=== PATIENT | male | born 1985 | race Hispanic/Latino ===

== ENCOUNTER 2017-06-21 02:06 | Emergency (ER) | payer MEDICARE ==
[2017-06-21 02:06] VITALS: BMI 28.5
[2017-06-21] MEDS ORDERED: Sodium Chloride 0.9% 1,000 ML IV STA (02:18)
--- NOTE | 2017-06-21 02:26 | ED PDOC ---
Arrival/HPI - General Chief Complaint: GI Problem Time Seen by Provider: 06/21/17 02:18 - History of Present Illness Narrative History of Present Illness (Text): 31 y/o M c PMHx ADHD, anxiety, Depression, appendectomy p/w vomiting x 6 today, NBNB after eating salad from [employer] at noon. Patient denies fever, chills, chest pain, dyspnea, diarrhea, dysuria. Patient does note some RUQ pressure but no pain per se. Past Medical History - Past History Past History: No Previous - Infectious Disease Hx of Infectious Diseases: None - Tetanus Immunization Tetanus Immunization: Unknown - Cardiac Hx Cardiac Disorders: Yes Hx Hypertension: Yes (not taking meds) Hx Pacemaker: No - Pulmonary Hx Respiratory Disorders: No - Neurological Hx Neurological Disorder: Yes Hx Paralysis: No Hx Seizures: Yes - HEENT Hx HEENT Disorder: No - Renal Hx Renal Disorder: No - Endocrine/Metabolic Hx Endocrine Disorders: No - Hematological/Oncological Hx Blood Disorders: No Hx Blood Transfusions: No Hx Blood Transfusion Reaction: No - Integumentary Hx Dermatological Disorder: No - Musculoskeletal/Rheumatological Hx Musculoskeletal Disorders: No - Gastrointestinal Hx Gastrointestinal Disorders: No - Genitourinary/Gynecological Hx Genitourinary Disorders: No - Psychiatric Hx Psychophysiologic Disorder: Yes Hx Anxiety: Yes Hx Depression: Yes Hx Emotional Abuse: No Hx Physical Abuse: No Hx Substance Use: No Other/Comment: ADD - Past Surgical History Past Surgical History: Non-Contributing - Surgical History Hx Appendectomy: Yes - Anesthesia Hx Anesthesia: No Hx Anesthesia Reactions: No Hx Malignant Hyperthermia: No - Suicidal Assessment Feels Threatened In Home Enviroment: No Family/Social History Family/Social History: No Known Family HX Smoking Status: Never Smoked Hx Alcohol Use: No Hx Substance Use: No Hx Substance Use Treatment: No Allergies/Home Meds Allergies/Adverse Reactions: Allergies lamotrigine [From Lamictal] Allergy (Intermediate, Verified 06/21/17 02:49) RASH aspirin Allergy (Verified 06/21/17 02:49) RASH Penicillins Allergy (Verified 06/21/17 02:49) RASH Home Medications: Home Meds Medication Instructions Recorded Confirmed Amphetamine Salt Combination 60 mg PO DAILY 06/21/17 06/21/17 [Adderall] LORazepam [Ativan] 2 mg PO HS 06/21/17 06/21/17 OXcarbazepine [Trileptal] 600 mg PO BID 06/21/17 06/21/17 Zolpidem [Ambien] 10 mg PO HS 06/21/17 06/21/17 clonazePAM [Klonopin] 1 mg PO PRN PRN 06/21/17 06/21/17 Review of Systems - Physician Review All systems were reviewed & negative as marked: Yes - Review of Systems Constitutional: absent: Fevers Respiratory: absent: SOB Physical Exam - Physical Exam Narrative Physical Exam (Text): Gen: NAD Head: NC Eyes: No scleral icterus ENT: MMM Neck:Supple Chest: No tenderness CV: Regular rate Lungs: CTA b/l Abd: RUQ tenderness, no guarding Back: No CVA tenderness Extremities: No swelling or tenderness Skin: no rash Neuro: Alert, no focal deficit Vital Signs Temp Pulse Resp BP Pulse Ox 06/21/17 02:06 98.6 F 114 H 20 150/96 H 99 Medical Decision Making ED Course and Treatment: IVF, Zofran, check labs, urine, US. EXAM: US Abdomen Complete Dictated and Authenticated by: Malachi Jose MD 06/21/2017 4:20 AM MPRESSION: 1. No acute findings. 2. Non-acute findings are described above 06/21/17 04:25 On re-evaluation, patient feels better, PO challenged and is in no acute distress. I have discussed the results and plan with the patient, who expresses understanding. Patient in agreement with plan to be discharged home. Patient is stable for discharge. Patient was instructed to follow up with Dr. Robledo or return if symptoms worsen or new concerning symptoms arise. - Lab Interpretations Lab Results: 06/21/17 02:35 06/21/17 02:35 Lab Results 06/21/17 02:55: Urine Color Light yellow, Urine Appearance Clear, Urine pH 6.0, Ur Specific [place] 1.020, Urine Protein Negative, Urine Glucose (UA) Negative, Urine Ketones Negative, Urine Blood Small H, Urine Nitrate Negative, Urine Bilirubin Negative, Urine Urobilinogen 0.2, Ur Leukocyte Esterase Negative, Urine RBC 2 - 5, Urine WBC 0 - 2, Ur Epithelial Cells 0 - 2, Urine Bacteria Many 06/21/17 02:35: Sodium 141, Potassium 3.7, Chloride 97 L, Carbon Dioxide 29, Anion Gap 18, BUN 7, Creatinine 0.8, Est GFR ( Amer) > 60, Est GFR (Non- Af Amer) > 60, Random Glucose 126 H, Calcium 10.6 H, Total Bilirubin 0.5, AST 32 , ALT 29, Alkaline Phosphatase 130 H, Total Protein 8.8 H, Albumin 5.0 H, Globulin 3.8, Albumin/Globulin Ratio 1.3, Lipase 51 06/21/17 02:35: WBC 9.5 D, RBC 5.08, Hgb 15.1, Hct 43.0, MCV 84.6, MCH 29.7, MCHC 35.1, RDW 13.3, Plt Count 320, MPV 9.6, Gran % 80.3 H, Lymph % (Auto) 16.2 L, Coke % (Auto) 3.3, Eos % (Auto) 0.1 L, Baso % (Auto) 0.1, Gran # 7.61 H, Lymph # (Auto) 1.5, Coke # (Auto) 0.3, Eos # (Auto) 0.0, Baso # (Auto) 0.01 - RAD Interpretation Radiology Orders: 06/21/17 02:18 ABDOMEN COMPLETE [US] Stat - Medication Orders Current Medication Orders: Discontinued Medications Sodium Chloride (Sodium Chloride 0.9%) 1,000 mls @ 999 mls/hr IV .Q1H1M STA Stop: 06/21/17 03:18 Last Admin: 06/21/17 02:40 Dose: 999 mls/hr eMAR Start Stop Document 06/21/17 02:40 CNR (Rec: 06/21/17 02:40 CNR [id number]) Intravenous Solution Start Date 06/21/17 Start Time 02:40 Lorazepam (Ativan) 2 mg PO ONCE ONE PRN Reason: Protocol Stop: 06/21/17 04:27 Last Admin: 06/21/17 04:35 Dose: 2 mg Ondansetron HCl (Zofran Inj) 8 mg IVP STAT STA Stop: 06/21/17 02:19 Last Admin: 06/21/17 02:40 Dose: 8 mg IVP Administration Document 06/21/17 02:40 CNR (Rec: 06/21/17 02:40 CNR [id number]) Charges for Administration # of IVP Administrations 1 Disposition/Present on Arrival - Present on Arrival Any Indicators Present on Arrival: No History of DVT/PE: No History of Uncontrolled Diabetes: No Urinary Catheter: No History of Decub. Ulcer: No History Surgical Site Infection Following: None - Disposition Have Diagnosis and Disposition been Completed?: Yes Diagnosis: Vomiting and diarrhea Disposition: HOME/ ROUTINE Disposition Time: 04:25 Patient Plan: Discharge Condition: STABLE Discharge Instructions (ExitCare): Viral Gastroenteritis Prescriptions: Ondansetron ODT [Zofran ODT] 8 mg PO Q8H #15 odt Referrals: Steven Robledo DO [Primary Care Provider] - Follow up with primary Forms: [facility] (Kyrgyz)
[2017-06-21 02:55] VITALS: TEMP 98.6
[2017-06-21 03:03] LABS: BASO # 0.01 K/mm3 (0.0-2.0); BASO % 0.1 % (0.0-3.0); EOS % 0.1 % (1.5-5.0); GRAN # 7.61 (1.4-6.5); GRAN % 80.3 % (50.0-68.0); HEMOGLOBIN 15.1 g/dL (14.0-18.0); LYMPH # 1.5 (1.2-3.4); LYMPH % 16.2 % (22.0-35.0); MEAN CELL VOLUME 84.6 fl (80.0-105.0); MEAN CORPUSCULAR HEMOGLOBIN 29.7 pg (25.0-35.0); MEAN CORPUSCULAR HGB CONC 35.1 g/dl (31.0-37.0); MEAN PLATELET VOLUME 9.6 fl (7.0-11.0); MONO # 0.3 (0.1-0.6); MONO % 3.3 % (1.0-6.0); RBC 5.08 10^6/uL (3.5-6.1); RED CELL DISTRIBUTION WIDTH 13.3 % (11.5-14.5); WHITE BLOOD COUNT 9.5 10^3/ul (4.5-11.0)
[2017-06-21 03:09] LABS: URINE BILIRUBIN NEGATIVE (NEGATIVE); URINE BLOOD SMALL (NEGATIVE); URINE GLUCOSE (UA) NEGATIVE (NEGATIVE); URINE LEUKOCYTE ESTERASE NEGATIVE Leu/uL (NEGATIVE); URINE PROTEIN NEGATIVE mg/dL (<30 mg/dL); URINE UROBILINOGEN 0.2 E.U./dL (<1 E.U./dL)
[2017-06-21 03:10] LABS: ALB/GLOB RATIO 1.3 (1.1-1.8); ALT/SGPT 29 U/L (7-56); AST/SGOT 32 U/L (17-59); BLOOD UREA NITROGEN 7 mg/dL (7-21); CALCIUM 10.6 mg/dL (8.4-10.5); GFR AFRICAN-AMERICAN > 60; GFR NON-AFRICAN AMERICAN > 60; LIPASE 51 U/L (23-300)
[2017-06-21 03:11] LABS: URINE APPEARANCE CLEAR (CLEAR); URINE COLOR LIGHT YELLOW (YELLOW)
[2017-06-21 03:25] LABS: URINE WBC 0 - 2 /hpf (0-6)
[2017-06-21 03:26] LABS: URINE BACTERIA MANY (NEG); URINE EPITHELIAL CELLS 0 - 2 /hpf (0-5)
[2017-06-21 05:04] VITALS: BP 146/72; PULSE 98; RESP 18; O2SAT 100
--- NOTE | 2017-06-21 09:56 | US ---
HISTORY: Abdominal pain, vomiting. COMPARISON: 09/29/2014. TECHNIQUE: Sonographic evaluation of the abdomen. FINDINGS: LIVER: Measures 20.8 cm. Patent portal vein. Portal venous flow: Hepatopetal. Unremarkable echogenicity of the liver parenchyma. No mass. No intrahepatic bile duct dilatation. GALLBLADDER: Unremarkable. No gallstones. COMMON BILE DUCT: Measures 5.8 mm. No stones. No dilatation. PANCREAS: Unremarkable as visualized. No mass. No ductal dilatation. RIGHT KIDNEY: Measures 5.2 x 13.5cm. Normal echogenicity. No calculus, mass, or hydronephrosis. LEFT KIDNEY: Measures 5.8 x 11.3cm. Normal echogenicity. No calculus, mass, or hydronephrosis. SPLEEN: Normal in size and contour. No mass. AORTA: No aneurysmal dilatation. IVC: Unremarkable. OTHER FINDINGS: None. IMPRESSION: Hepatomegaly. No acute findings. No significant interval change compared to the prior examination(s). Concordant results (preliminary interpretation) provided by [facility]. Procedure Completed: 03:32 Preliminary ([facility]) Report: Dictated and Authenticated: 04:20 Final Interpretation: 09:54
== END 2017-06-21 05:04 | disposition home or self-care (01) ==
LOC: ED 02:06
DX: R19.7 Diarrhea, unspecified (principal); R11.10 Vomiting, unspecified; I10 Essential (primary) hypertension; F90.9 Attention-deficit hyperactivity disorder, unspecified type; F41.9 Anxiety disorder, unspecified; F32.9 Major depressive disorder, single episode, unspecified
CPT/HCPCS: 76700; 80053; 81001; 83690; 85025; 96374; 99284; J2405; J7040

== ENCOUNTER 2017-09-15 13:51 | Emergency (ER) | payer MEDICARE, MEDICAID ==
[2017-09-15 13:51] VITALS: BMI 28.5
[2017-09-15] MEDS ORDERED: cefTRIAXone (Rocephin) 250 mg Inj IM STA (15:05)
--- NOTE | 2017-09-15 15:27 | ED PDOC ---
Arrival/HPI - General Chief Complaint: Fever Time Seen by Provider: 09/15/17 14:58 Historian: Patient - History of Present Illness Narrative History of Present Illness (Text): 09/15/17 15:05 31 year old male, with past medical history of ADHD, anxiety, Depression, and appendectomy, presents to the Emergency department complaining of dysuria since last few days. Patient informs visiting [facility] and was diagnosed with STD but does not recall what it is. Patient denies any fever, chills, nausea, vomiting, diarrhea, abdominal pain, chest pain, shortness of breath or any other complaints. Time/Duration: < week Symptom Onset: Gradual Symptom Course: Unchanged Activities at Onset: Light Context: Other ([facility]) Past Medical History - Provider Review Nursing Documentation Reviewed: Yes - Past History Past History: No Previous - Infectious Disease Hx of Infectious Diseases: None - Tetanus Immunization Tetanus Immunization: Unknown - Cardiac Hx Cardiac Disorders: Yes Hx Hypertension: Yes (not taking meds) Hx Pacemaker: No - Pulmonary Hx Respiratory Disorders: No - Neurological Hx Neurological Disorder: Yes Hx Paralysis: No Hx Seizures: Yes - HEENT Hx HEENT Disorder: No - Renal Hx Renal Disorder: No - Endocrine/Metabolic Hx Endocrine Disorders: No - Hematological/Oncological Hx Blood Disorders: No Hx Blood Transfusions: No Hx Blood Transfusion Reaction: No - Integumentary Hx Dermatological Disorder: No - Musculoskeletal/Rheumatological Hx Musculoskeletal Disorders: No - Gastrointestinal Hx Gastrointestinal Disorders: No - Genitourinary/Gynecological Hx Genitourinary Disorders: No - Psychiatric Hx Psychophysiologic Disorder: Yes Hx Anxiety: Yes Hx Depression: Yes Hx Emotional Abuse: No Hx Physical Abuse: No Hx Substance Use: No Other/Comment: ADHD - Past Surgical History Past Surgical History: Non-Contributing - Surgical History Hx Appendectomy: Yes - Anesthesia Hx Anesthesia: No Hx Anesthesia Reactions: No Hx Malignant Hyperthermia: No - Suicidal Assessment Feels Threatened In Home Enviroment: No Family/Social History - Physician Review Nursing Documentation Reviewed: Yes Family/Social History: No Known Family HX Smoking Status: Never Smoked Hx Alcohol Use: No Hx Substance Use: No Hx Substance Use Treatment: No Allergies/Home Meds Allergies/Adverse Reactions: Allergies lamotrigine [From Lamictal] Allergy (Intermediate, Verified 09/15/17 14:34) RASH aspirin Allergy (Verified 09/15/17 14:34) RASH Penicillins Allergy (Verified 09/15/17 14:34) RASH Home Medications: Home Meds Medication Instructions Recorded Confirmed Amphetamine Salt Combination 60 mg PO DAILY 06/21/17 09/15/17 [Adderall] LORazepam [Ativan] 2 mg PO HS 06/21/17 09/15/17 OXcarbazepine [Trileptal] 600 mg PO BID 06/21/17 09/15/17 Zolpidem [Ambien] 10 mg PO HS 06/21/17 09/15/17 clonazePAM [Klonopin] 1 mg PO PRN PRN 06/21/17 09/15/17 Review of Systems - Physician Review All systems were reviewed & negative as marked: Yes - Review of Systems Constitutional: Normal. absent: Fevers Eyes: Normal ENT: Normal Respiratory: Normal. absent: SOB Cardiovascular: Normal. absent: Chest Pain Gastrointestinal: Normal. absent: Abdominal Pain, Diarrhea, Nausea, Vomiting Genitourinary Male: Dysuria Musculoskeletal: Normal Skin: Normal Neurological: Normal Endocrine: Normal Hemo/Lymphatic: Normal Psychiatric: Normal Physical Exam Vital Signs Reviewed: Yes Vital Signs Temp Pulse Resp BP Pulse Ox 09/15/17 16:09 99.2 F 124 H 18 157/93 H 100 Temperature: Afebrile Blood Pressure: Normal Pulse: Regular Respiratory Rate: Normal Appearance: Positive for: Well-Appearing, Non-Toxic, Comfortable Pain Distress: None Mental Status: Positive for: Alert and Oriented X 3 - Systems Exam Head: Present: Atraumatic, Normocephalic Pupils: Present: PERRL Extroacular Muscles: Present: EOMI Conjunctiva: Present: Normal Mouth: Present: Moist Mucous Membranes Neck: Present: Normal Range of Motion Respiratory/Chest: Present: Clear to Auscultation, Good Air Exchange. No: Respiratory Distress, Accessory Muscle Use Cardiovascular: Present: Regular Rate and Rhythm, Normal S1, S2. No: Murmurs Abdomen: No: Tenderness, Distention, Peritoneal Signs Back: Present: Normal Inspection Upper Extremity: Present: Normal Inspection. No: Cyanosis, Edema Lower Extremity: Present: Normal Inspection. No: Edema Neurological: Present: GCS=15, CN II-XII Intact, Speech Normal Skin: Present: Warm, Dry, Normal Color. No: Rashes Psychiatric: Present: Alert, Oriented x 3, Normal Insight, Normal Concentration Medical Decision Making ED Course and Treatment: 09/15/17 15:05 Impression: 31 year old male presents to the Emergency department for dysuria. Plan: -- Rocephin -- Zithromax -- Urinalysis -- Reassess and disposition Prior Visits: Notes and results from previous visits were reviewed. Progress Notes: 09/15/17 17:27 Leaving Against Medical Advice (AMA): The patient is choosing to leave against medical advice. I have personally explained to the patient that choosing to do so may result in permanent bodily harm or . I have discussed at great length that without further evaluation and monitoring there may be unforeseen circumstances and/or deterioration causing permanent bodily harm or as a result of their choice. The patient is alert, oriented, and shows the mental capacity to make clear decisions regarding the patients health care at this time. The patient continues to wish to leave against medical advice. In light of the patients decision to leave against medical advice, follow-up has been arranged and the patient is aware of the importance to following up as instructed. The patient has been advised that they should return to the emergency room immediately if they change their mind at any time, or if their condition begins to change or worsen in any way. - Lab Interpretations Lab Results: Lab Results 09/15/17 16:59: Urine Color Yellow, Urine Appearance Sl cloudy, Urine pH 6.0, Ur Specific [place] 1.025, Urine Protein 30 H, Urine Glucose (UA) Negative, Urine Ketones Negative, Urine Blood Small H, Urine Nitrate Negative, Urine Bilirubin Negative, Urine Urobilinogen 0.2, Ur Leukocyte Esterase Small H, Urine RBC 0 - 2, Urine WBC 15 - 20, Ur Epithelial Cells 0 - 2, Urine Bacteria Trace - Medication Orders Current Medication Orders: Discontinued Medications Azithromycin (Zithromax) 1,000 mg PO STAT STA PRN Reason: Protocol Stop: 09/15/17 15:06 Last Admin: 09/15/17 15:54 Dose: 1,000 mg Ceftriaxone Sodium (Rocephin) 250 mg IM STAT STA PRN Reason: Protocol Stop: 09/15/17 15:06 Last Admin: 09/15/17 15:54 Dose: 250 mg IM Administration Charges Document 09/15/17 15:54 SF (Rec: 09/15/17 15:54 SF [id number]) Injection Site MAR Injection Site Left Gluteus Medius Charges for Administration # of IM Administrations 1 - Scribe Statement The provider has reviewed the documentation as recorded by the Scribe Zuly Mancuso. All medical record entries made by the Scribe were at my direction and personally dictated by me. I have reviewed the chart and agree that the record accurately reflects my personal performance of the history, physical exam, medical decision making, and the department course for this patient. I have also personally directed, reviewed, and agree with the discharge instructions and disposition. Disposition/Present on Arrival - Present on Arrival Any Indicators Present on Arrival: No History of DVT/PE: No History of Uncontrolled Diabetes: No Urinary Catheter: No History of Decub. Ulcer: No History Surgical Site Infection Following: None - Disposition Have Diagnosis and Disposition been Completed?: Yes Diagnosis: UTI (urinary tract infection), Exposure to STD Disposition: HOME/ ROUTINE Disposition Time: 17:25 Discharge Instructions (ExitCare): Urinary Tract Infection, Adult (DC), Screening for Sexually Transmitted Infections, Leaving Against Medical Advice Additional Instructions: return to er with worsening symptoms or concerns. Referrals: Steven Robledo DO [Primary Care Provider] - Follow up with primary Forms: [facility] (Chinese)
[2017-09-15 16:10] VITALS: TEMP 99.2; O2SAT 100
[2017-09-15 17:11] LABS: URINE BILIRUBIN NEGATIVE (NEGATIVE); URINE BLOOD SMALL (NEGATIVE); URINE GLUCOSE (UA) NEGATIVE (NEGATIVE); URINE LEUKOCYTE ESTERASE SMALL Leu/uL (NEGATIVE); URINE PROTEIN 30 mg/dL (<30 mg/dL); URINE UROBILINOGEN 0.2 E.U./dL (<1 E.U./dL)
[2017-09-15 17:13] LABS: URINE APPEARANCE SL CLOUDY (CLEAR); URINE COLOR YELLOW (YELLOW)
[2017-09-15 17:21] LABS: URINE BACTERIA TRACE (NEG); URINE EPITHELIAL CELLS 0 - 2 /hpf (0-5); URINE RBC 0 - 2 /hpf (0-2); URINE WBC 15 - 20 /hpf (0-6)
[2017-09-15 17:41] VITALS: BP 148/87; PULSE 120; RESP 17
== END 2017-09-15 17:41 | disposition home or self-care (01) ==
LOC: ED 13:51
DX: Z20.2 Contact with and (suspected) exposure to infections with a predominantly sexual mode of transmission (principal); N39.0 Urinary tract infection, site not specified; I10 Essential (primary) hypertension
CPT/HCPCS: 81001; 87086; 96372; 99285; J0696

== ENCOUNTER 2017-09-22 21:13 | Emergency (ER) | payer MEDICARE, MEDICAID ==
--- NOTE | 2017-09-22 21:59 | ED PDOC ---
Arrival/HPI <KeiraWarren reagan - Last Filed: 09/22/17 22:17> - General Historian: Patient - History of Present Illness Time/Duration: Other (see hpi) Context: Home <Deepti Ariza - Last Filed: 09/24/17 18:08> - General Chief Complaint: Psychiatric Evaluation Time Seen by Provider: 09/22/17 21:42 - History of Present Illness Narrative History of Present Illness (Text): 09/22/17 21:59 This 31 yo male with pmh seizures, bipolar disorder, drug abuse, presents to this ED c/o suicidal ideation "few days". Patient stated his symptoms has been worsening last 2 weeks. He wants to cut his neck with a hunting knife. Patient did not mention idea to jump from bridge. Patient stated he has been taking Klonopin and Ativan for depression and anxiety for "many years". He said Dr. Suresh, Psychiatrist has been prescribing patient his medication, but he has been taking moire tabs what it was prescribed, so he has been running out of his meds sooner. Denies other somatic complains. (Deepti Ariza) Past Medical History - Provider Review Nursing Documentation Reviewed: Yes - Past History Past History: No Previous - Infectious Disease Hx of Infectious Diseases: None - Tetanus Immunization Tetanus Immunization: Unknown - Cardiac Hx Cardiac Disorders: Yes Hx Hypertension: Yes (not taking meds) - Pulmonary Hx Respiratory Disorders: No - Neurological Hx Neurological Disorder: Yes Hx Seizures: Yes - HEENT Hx HEENT Disorder: No - Renal Hx Renal Disorder: No - Endocrine/Metabolic Hx Endocrine Disorders: No - Hematological/Oncological Hx Blood Disorders: No - Integumentary Hx Dermatological Disorder: No - Musculoskeletal/Rheumatological Hx Musculoskeletal Disorders: No - Gastrointestinal Hx Gastrointestinal Disorders: No - Genitourinary/Gynecological Hx Genitourinary Disorders: No - Psychiatric Hx Psychophysiologic Disorder: Yes Hx Anxiety: Yes Hx Depression: Yes Hx Panic Disorder: Yes Hx Substance Use: No Other/Comment: ADHD, SI - Past Surgical History Past Surgical History: Non-Contributing - Surgical History Hx Appendectomy: Yes - Anesthesia Hx Anesthesia: No Hx Anesthesia Reactions: No Hx Malignant Hyperthermia: No - Suicidal Assessment Feels Threatened In Home Enviroment: No <Deepti Ariza - Last Filed: 09/24/17 18:08> Family/Social History - Physician Review Nursing Documentation Reviewed: Yes Family/Social History: Other (noncontributory) Smoking Status: Never Smoked Hx Alcohol Use: No Hx Substance Use: No Hx Substance Use Treatment: No <Deepti Ariza - Last Filed: 09/24/17 18:08> Allergies/Home Meds <Warren Crockett - Last Filed: 09/22/17 22:17> <ToEvamaryan Moreau - Last Filed: 09/24/17 18:08> Allergies/Adverse Reactions: Allergies lamotrigine [From Lamictal] Allergy (Intermediate, Verified 09/22/17 21:48) RASH aspirin Allergy (Verified 09/22/17 21:48) RASH Penicillins Allergy (Verified 09/22/17 21:48) RASH Home Medications: Home Meds Medication Instructions Recorded Confirmed Amphetamine Salt Combination 60 mg PO DAILY 06/21/17 09/22/17 [Adderall] LORazepam [Ativan] 2 mg PO HS 06/21/17 09/22/17 Butalbital/Acetaminophen 1 tab PO BID 09/22/17 09/22/17 [Butalbital-Acetaminophn 50-325] Levocetirizine Dihydrochloride 5 mg PO HS 09/22/17 09/22/17 [Xyzal] QUEtiapine [SEROquel] 300 mg PO HS 09/22/17 09/22/17 Review of Systems - Review of Systems Constitutional: Normal. absent: Fatigue, Weight Change, Fevers, Night Sweats, Other Eyes: Normal ENT: Normal Respiratory: Normal Cardiovascular: Normal Gastrointestinal: Normal Genitourinary Male: Normal Musculoskeletal: Normal Skin: Normal Neurological: Normal Endocrine: Normal Hemo/Lymphatic: Normal Psychiatric: Anxiety, Depression, Suicidal Ideation. absent: Normal, Other <ToEvamaryan Moreau - Last Filed: 09/24/17 18:08> Physical Exam Temperature: Afebrile Blood Pressure: Hypertensive Pulse: Tachycardic Respiratory Rate: Normal Appearance: Positive for: Well-Appearing, Non-Toxic, Comfortable Pain Distress: None Mental Status: Positive for: Alert and Oriented X 3 - Systems Exam Head: Present: Atraumatic, Normocephalic Pupils: Present: PERRL Extroacular Muscles: Present: EOMI Conjunctiva: Present: Normal Mouth: Present: Moist Mucous Membranes Neck: Present: Normal Range of Motion Respiratory/Chest: Present: Clear to Auscultation, Good Air Exchange. No: Respiratory Distress, Accessory Muscle Use Cardiovascular: Present: Regular Rate and Rhythm, Normal S1, S2. No: Murmurs Abdomen: No: Tenderness, Distention, Peritoneal Signs Back: Present: Normal Inspection Upper Extremity: Present: Normal Inspection. No: Cyanosis, Edema Lower Extremity: Present: Normal Inspection. No: Edema Neurological: Present: GCS=15, CN II-XII Intact, Speech Normal Skin: Present: Warm, Dry, Normal Color. No: Rashes Psychiatric: Present: Alert, Oriented x 3, Normal Insight, Normal Concentration <Ariza,Nahim P - Last Filed: 09/24/17 18:08> Vital Signs Temp Pulse Resp BP Pulse Ox 09/23/17 01:11 98 09/22/17 21:47 97.8 F 116 H 18 149/105 H 97 Medical Decision Making <Warren Crockett - Last Filed: 09/22/17 22:17> Re-evaluation Time: 00:25 Reassessment Condition: Re-examined, Improved - Lab Interpretations I have reviewed the lab results: Yes Interpretation: No clinic. lab abnormalty <Ariza,Nahim P - Last Filed: 09/24/17 18:08> ED Course and Treatment: 09/23/17 00:24 I spoke with PES regarding patient symptoms. She stated spoke with psychiatrist and they both agreed to d/c patient home and to f/u Dr. Suresh. Re-evaluation. Patient feels better. Discussed results and plan with patient who expresses understanding. All questions answered and there is agreement with the plan to discharge home with instructions. Patient stable for discharge. Return if symptoms persist or worsen. VS: after Ativan 1 mg PO x once HR: 86 bpm B/P: 140/86 VS was visualized on equipment monitor phototypesetting reading (Ariza,Nahim P) - Lab Interpretations Lab Results: 09/22/17 23:19 Lab Results 09/22/17 23:19: Alcohol, Quantitative < 10 09/22/17 23:19: Salicylates < 1 L, Acetaminophen < 10.0 L 09/22/17 23:19: WBC 7.7, RBC 4.75, Hgb 15.5, Hct 40.2 L, MCV 84.6, MCH 32.6, MCHC 38.6 H, RDW 14.1, Plt Count 328, MPV 10.6, Gran % 59.0, Lymph % (Auto) 33.5 , [place] % (Auto) 5.8, Eos % (Auto) 1.2 L, Baso % (Auto) 0.5, Gran # 4.55, Lymph # (Auto) 2.6, [place] # (Auto) 0.5, Eos # (Auto) 0.1, Baso # (Auto) 0.04 09/22/17 22:33: Urine Opiates Screen Negative, Urine Methadone Screen Negative, Ur Barbiturates Screen Negative, Ur Phencyclidine Scrn Negative, Ur Amphetamines Screen Negative, U Benzodiazepines Scrn Positive H, U Oth Cocaine Metabols Negative, U Cannabinoids Screen Negative 09/22/17 22:33: Urine Color Yellow, Urine Appearance Clear, Urine pH 6.0, Ur Specific [place] >= 1.030, Urine Protein 30 H, Urine Glucose (UA) Negative, Urine Ketones Trace H, Urine Blood Negative, Urine Nitrate Negative, Urine Bilirubin Negative, Urine Urobilinogen 0.2, Ur Leukocyte Esterase Negative, Urine RBC 1 - 3, Urine WBC 2 - 5, Ur Epithelial Cells 0 - 2, Urine Bacteria Mod , Coarse Granular Casts Trace H - RAD Interpretation Radiology Orders: 09/22/17 22:00 CHEST PORTABLE [RAD] Stat - Medication Orders Current Medication Orders: Discontinued Medications Acetaminophen/Butalbital/Caffeine (Fioricet) 1 tab PO STAT STA Stop: 09/22/17 22:12 Last Admin: 09/22/17 22:27 Dose: 1 tab MAR Pain Assessment Document 09/22/17 22:27 SS (Rec: 09/22/17 22:27 SS [id number]) Pain Reassessment Is this a pain reassessment? No Presence of Pain Presence of Pain Yes Pain Scale Used Pain Scale Used Numeric Location Pain Location Body Obstetrics Gynecology Physician Lorazepam (Ativan) 1 mg PO ONCE ONE PRN Reason: Protocol Stop: 09/22/17 23:45 Last Admin: 09/22/17 23:51 Dose: 1 mg - PA / COCKTAIL SERVER / Resident Statement / has reviewed & agrees with the documentation as recorded. / has examined the patient and agrees with the treatment plan. <Warren Crockett - Last Filed: 09/22/17 22:17> Disposition/Present on Arrival <Warren Crockett - Last Filed: 09/22/17 22:17> - Present on Arrival Any Indicators Present on Arrival: No History of DVT/PE: No History of Uncontrolled Diabetes: No Urinary Catheter: No History of Decub. Ulcer: No History Surgical Site Infection Following: None - Disposition Have Diagnosis and Disposition been Completed?: Yes Disposition Time: 00:25 Patient Plan: Discharge <Deepti Ariza - Last Filed: 09/24/17 18:08> - Disposition Diagnosis: Panic disorder Disposition: HOME/ ROUTINE Condition: GOOD Discharge Instructions (ExitCare): Panic Disorder (DC) Additional Instructions: Call Dr. Suresh Psychiatrist office in 1-2 days. Continue with home medication. return to Emergency if symptoms worsen. Referrals: Artemio Suresh MD [Non-Staff] - Follow up with primary Forms: [employer] (Polish), WORK NOTE
[2017-09-22 22:04] VITALS: BP 149/105; PULSE 116; RESP 18; TEMP 97.8; BMI 26.2
[2017-09-22] MEDS ORDERED: Apap-Butalbital-Caffeine 325-50-40mg Tab PO STA (22:11)
[2017-09-22 22:40] LABS: URINE APPEARANCE CLEAR (CLEAR); URINE BILIRUBIN NEGATIVE (NEGATIVE); URINE BLOOD NEGATIVE (NEGATIVE); URINE COLOR YELLOW (YELLOW); URINE GLUCOSE (UA) NEGATIVE (NEGATIVE); URINE LEUKOCYTE ESTERASE NEGATIVE Leu/uL (NEGATIVE); URINE PROTEIN 30 mg/dL (<30 mg/dL); URINE UROBILINOGEN 0.2 E.U./dL (<1 E.U./dL)
[2017-09-22 22:44] LABS: URINE BACTERIA MOD (NEG); URINE EPITHELIAL CELLS 0 - 2 /hpf (0-5)
[2017-09-22 22:45] LABS: URINE COARSE GRANULAR CAST TRACE /hpf (0-2)
[2017-09-22 23:00] LABS: BARBITURATES, UR NEGATIVE (NEGATIVE); BENZODIAZEPINES, UR POSITIVE (NEGATIVE); OPIATES, UR NEGATIVE (NEGATIVE); PHENCYCLIDINE, UR NEGATIVE (NEGATIVE)
[2017-09-22 23:33] LABS: BASO # 0.04 K/mm3 (0.0-2.0); BASO % 0.5 % (0.0-3.0); EOS # 0.1 (0.0-0.7); EOS % 1.2 % (1.5-5.0); GRAN # 4.55 (1.4-6.5); HEMOGLOBIN 15.5 g/dL (14.0-18.0); LYMPH # 2.6 (1.2-3.4); LYMPH % 33.5 % (22.0-35.0); MEAN CELL VOLUME 84.6 fl (80.0-105.0); MEAN CORPUSCULAR HEMOGLOBIN 32.6 pg (25.0-35.0); MEAN CORPUSCULAR HGB CONC 38.6 g/dl (31.0-37.0); MEAN PLATELET VOLUME 10.6 fl (7.0-11.0); MONO # 0.5 (0.1-0.6); MONO % 5.8 % (1.0-6.0); RBC 4.75 10^6/uL (3.5-6.1); RED CELL DISTRIBUTION WIDTH 14.1 % (11.5-14.5); WHITE BLOOD COUNT 7.7 10^3/ul (4.5-11.0)
[2017-09-22 23:38] LABS: ACETAMINOPHEN < 10.0 ug/ml (10.0-20.0); SALICYLATE < 1 mg/dL (2.0-20.0)
[2017-09-23 01:11] VITALS: O2SAT 98
--- NOTE | 2017-09-23 08:20 | RAD ---
HISTORY: PES eval COMPARISON: 10/03/2015 FINDINGS: LUNGS: No active pulmonary disease. PLEURA: No significant pleural effusion identified, no pneumothorax apparent. CARDIOVASCULAR: Normal. OSSEOUS STRUCTURES: No significant abnormalities. VISUALIZED UPPER ABDOMEN: Normal. OTHER FINDINGS: None. IMPRESSION: No active disease. No interval pathology noted.
--- NOTE | 2017-09-23 10:03 | CARD ---
APPROVED REPORT EKG Measurement Heart [id number] <Conclusion> Sinus tachycardia Otherwise normal ECG Improved repolarization changes c/w ECG 10/03/15
== END 2017-09-23 01:11 | disposition home or self-care (01) ==
LOC: ED 21:13
DX: F41.0 Panic disorder [episodic paroxysmal anxiety] (principal); I10 Essential (primary) hypertension
CPT/HCPCS: 71045; 81001; 85025; 90791; 93005; 99283; G0480

== ENCOUNTER 2018-01-19 07:51 | Emergency (ER) | payer MEDICARE, MEDICAID ==
[2018-01-19 07:51] VITALS: BMI 28.5
[2018-01-19 08:03] VITALS: O2SAT 100
[2018-01-19 08:54] LABS: BASO # 0.02 K/mm3 (0.0-2.0); BASO % 0.2 % (0.0-3.0); EOS # 0.1 (0.0-0.7); EOS % 0.6 % (1.5-5.0); GRAN # 5.23 (1.4-6.5); GRAN % 63.2 % (50.0-68.0); HEMOGLOBIN 14.6 g/dL (14.0-18.0); LYMPH # 2.6 (1.2-3.4); MEAN CELL VOLUME 89.9 fl (80.0-105.0); MEAN CORPUSCULAR HEMOGLOBIN 30.1 pg (25.0-35.0); MEAN CORPUSCULAR HGB CONC 33.5 g/dl (31.0-37.0); MEAN PLATELET VOLUME 9.6 fl (7.0-11.0); MONO # 0.4 (0.1-0.6); RBC 4.85 10^6/uL (3.5-6.1); WHITE BLOOD COUNT 8.3 10^3/uL (4.5-11.0)
[2018-01-19 09:10] LABS: ALB/GLOB RATIO 1.4 (1.1-1.8); ALT/SGPT 35 U/L (7-56); AST/SGOT 42 U/L (17-59); BLOOD UREA NITROGEN 6 mg/dL (7-21); CALCIUM 9.8 mg/dL (8.4-10.5); GFR NON-AFRICAN AMERICAN > 60
[2018-01-19 09:11] LABS: ACETAMINOPHEN < 10.0 ug/ml (10.0-20.0); SALICYLATE < 1 mg/dL (2.0-20.0)
--- NOTE | 2018-01-19 09:20 | ED PDOC ---
Arrival/HPI - General Chief Complaint: Trauma Time Seen by Provider: 01/19/18 08:35 Historian: Patient, EMS - History of Present Illness Narrative History of Present Illness (Text): 01/19/18 08:36 32 year old male, with past medical history of ADHD, anxiety, depression, bipolar disorder, seizures, and drug abuse, presents to the Emergency department via EMS for medical evaluation today. As per EMS, patient was found by mother on the bathroom floor with tremors, who subsequently called 911 for evaluation. Upon arrival to the Emergency department, patient appears drowsy and presents a different history. Patient reports taking 4-5 pills of Soma for his back pain this morning and reportedly fell from his bed to the floor. Patient denies hitting his head or loss of consciousness. Patient denies any somatic complaints. Patient persistently repeats "I want to go home. Nothing is wrong with me" upon questioning. Patient denies any fevers, chills, headache, dizziness, chest pain, shortness of breath, dyspnea on exertion, cough, abdominal pain, nausea, vomiting, diarrhea, neck pain, or any other complaints. Time/Duration: Prior to Arrival Symptom Onset: Gradual Symptom Course: Unchanged Activities at Onset: Light Context: Home Past Medical History - Provider Review Nursing Documentation Reviewed: Yes - Past History Past History: No Previous - Infectious Disease Hx of Infectious Diseases: None - Tetanus Immunization Tetanus Immunization: Unknown - Cardiac Hx Cardiac Disorders: Yes Hx Hypertension: Yes (not taking meds) - Pulmonary Hx Respiratory Disorders: No - Neurological Hx Neurological Disorder: Yes Hx Seizures: Yes - HEENT Hx HEENT Disorder: No - Renal Hx Renal Disorder: No - Endocrine/Metabolic Hx Endocrine Disorders: No - Hematological/Oncological Hx Blood Disorders: No - Integumentary Hx Dermatological Disorder: No - Musculoskeletal/Rheumatological Hx Musculoskeletal Disorders: No - Gastrointestinal Hx Gastrointestinal Disorders: No - Genitourinary/Gynecological Hx Genitourinary Disorders: No - Psychiatric Hx Substance Use: No Other/Comment: ADD - Past Surgical History Past Surgical History: Non-Contributing - Surgical History Hx Appendectomy: Yes - Anesthesia Hx Anesthesia: No Hx Anesthesia Reactions: No Hx Malignant Hyperthermia: No - Suicidal Assessment Feels Threatened In Home Enviroment: No Family/Social History - Physician Review Nursing Documentation Reviewed: Yes Family/Social History: Unknown Family HX Smoking Status: Never Smoked Hx Alcohol Use: No Hx Substance Use: No Hx Substance Use Treatment: No Allergies/Home Meds Allergies/Adverse Reactions: Allergies lamotrigine [From Lamictal] Allergy (Intermediate, Verified 09/22/17 21:48) RASH aspirin Allergy (Verified 09/22/17 21:48) RASH Penicillins Allergy (Verified 09/22/17 21:48) RASH Home Medications: Home Meds Medication Instructions Recorded Confirmed Amphetamine Salt Combination 60 mg PO DAILY 06/21/17 09/22/17 [Adderall] LORazepam [Ativan] 2 mg PO HS 06/21/17 09/22/17 Butalbital/Acetaminophen 1 tab PO BID 09/22/17 09/22/17 [Butalbital-Acetaminophn 50-325] Levocetirizine Dihydrochloride 5 mg PO HS 09/22/17 09/22/17 [Xyzal] QUEtiapine [SEROquel] 300 mg PO HS 09/22/17 09/22/17 Review of Systems - Physician Review All systems were reviewed & negative as marked: Yes - Review of Systems Constitutional: absent: Fevers Respiratory: absent: SOB, Cough Cardiovascular: absent: Chest Pain Gastrointestinal: absent: Abdominal Pain, Diarrhea, Nausea, Vomiting Genitourinary Male: absent: Dysuria, Hematuria, Urinary Output Changes Musculoskeletal: absent: Neck Pain Neurological: absent: Headache, Dizziness Physical Exam - Physical Exam Narrative Physical Exam (Text): 01/19/18 08:36 Gen: VS reviewed, awake, alert but drowsy, well developed, well nourished, mild distress. ENT: normal pharynx. Eye: EOMI, PERRL. Neck: no JVD, supple, no adenopathy. CV: regular rate, regular rhythm, no rubs, no murmur, no gallops, S1, S2, pulses equal and strong. Pulm: no distress, clear to auscultation, no wheeze, no rhonchi, breath sounds equal, no rales. Abd: soft, nontender, no guarding, no rebound, no rigidity, normal bowel sounds. Ext: no edema. Upper extremity tremors at rest. Full range of motion of all extremities. Questionable tenderness to right SI joint area. Skin: good color, no rash, no cyanosis. Psych: awake alert but appears drowsy. Neuro: oriented x 3, CN2-12 intact grossly, motor intact, sensation intact. Vital Signs Reviewed: Yes Vital Signs Temp Pulse Resp BP Pulse Ox 01/19/18 08:02 98.2 F 106 H 18 137/83 100 Temperature: Afebrile Blood Pressure: Normal Pulse: Tachycardic Respiratory Rate: Normal Appearance: Positive for: Well-Appearing, Non-Toxic, Comfortable Pain Distress: Mild Mental Status: Positive for: Alert and Oriented X 3 Medical Decision Making ED Course and Treatment: 01/19/18 08:38 Impression: 32 year old male presents to the Emergency department for medical evaluation. Plan: -- CT of Head -- EKG -- Labs -- Chest X-ray -- Ativan -- Geodon -- Urinalysis -- Reassess and disposition Prior Visits: Notes and results from previous visits were reviewed. Progress Notes: 01/19/18 08:53 This patients severe and persistent agitated state is preventing me from assessing the patient to determine if a serious underlying medical condition exists. The patient's behavior is creating an unsafe situation and placing him self, staff, and other patients at risk. The patient is: (+) verbally abusive and threatening to staff; apparently under the influence of an illicit substance(s), uncooperative and unable to comprehend his/her situation or make informed choices regarding his/her own health. Non-pharmacologic approaches, including verbal de-escalation and reducing environmental stimulation, were attempted but unsuccessful. In an attempt to develop a provisional diagnosis of the most likely cause of this patients agitated state, I have categorized the patient's condition as follows: agitation due to intoxication: [employer]INE [employer]PERINTENDENT stimulant vs depressant suspected. Oral pharmacotherapy was offered to the patient in an effo rt to calm the patient, permit an accurate assessment and allow the patient to participate in his/her own treatment plan, but the patient states he will dry heave/vomit. Patient sedated with geodon and ativan under my supervision. The patient was reassessed by me 15 minutes after medication administration. Patient re-assessed and found to be with resolved agitation, resting comfortably, with stable vitals. In summary, pharmacologic intervention targeted at this patients underlying illness was successful in alleviating agitation, facilitating an accurate assessment and ensuring safety for the patient, staff and others. 01/19/18 10:[address], awake and alert, calm 01/19/18 12:21 re-eval, patient is awake and alert, appears to have clear insight into todays events, patient is no longer tremulous, nontoxic appearing. at this time will request PES eval as the patient has an extensive psych history. 01/19/18 12:35 patient ambulates with steady gait, offers no physical complaints, patient is awake and oriented, does not appear to be a threat to himself, no longer appears intoxicated, appears stable for discharge in the company of mother. patient already has a psychiatrist that he may follow up with. - Lab Interpretations Lab Results: 01/19/18 08:45 01/19/18 08:45 Lab Results 01/19/18 08:45: Alcohol, Quantitative < 10 01/19/18 08:45: Salicylates < 1 L, Acetaminophen < 10.0 L 01/19/18 08:45: Sodium 143, Potassium 3.9, Chloride 101, Carbon Dioxide 26, Anion Gap 20, BUN 6 L, Creatinine 0.8, Est GFR ( Amer) > 60, Est GFR (Non-Af Amer) > 60, Random Glucose 105, Calcium 9.8, Total Bilirubin 0.4, AST 42, ALT 35, Alkaline Phosphatase 87, Total Protein 8.5 H, Albumin 5.0 H, Globulin 3.6, Albumin/Globulin Ratio 1.4 01/19/18 08:45: WBC 8.3, RBC 4.85, Hgb 14.6, Hct 43.6, MCV 89.9 D, MCH 30.1, MCHC 33.5, RDW 13.0, Plt Count 243, MPV 9.6, Gran % 63.2, Lymph % (Auto) 31.0, [place] % (Auto) 5.0, Eos % (Auto) 0.6 L, Baso % (Auto) 0.2, Gran # 5.23, Lymph # (Auto) 2.6, [place] # (Auto) 0.4, Eos # (Auto) 0.1, Baso # (Auto) 0.02 - RAD Interpretation Narrative RAD Interpretations (Text): 01/19/18 10:19 CT of Head reviewed by radiologist, shows: FINDINGS: HEMORRHAGE: No intracranial hemorrhage. BRAIN: No mass effect or edema. No atrophy or chronic microvascular ischemic changes. VENTRICLES: Unremarkable. No hydrocephalus. CALVARIUM: Unremarkable. PARANASAL SINUSES: Unremarkable as visualized. No significant inflammatory changes. MASTOID AIR CELLS: Unremarkable as visualized. No inflammatory changes. OTHER FINDINGS: None. IMPRESSION: Normal CT of the Head. 01/19/18 11:28 Chest X-ray reviewed by radiologist, shows: FINDINGS: LUNGS: Clear. PLEURA: No pneumothorax or pleural fluid seen. CARDIOVASCULAR: Normal. OSSEOUS STRUCTURES: No significant abnormalities. VISUALIZED UPPER ABDOMEN: Normal. OTHER FINDINGS: None. IMPRESSION: No active disease. Radiology Orders: 01/19/18 08:36 HEAD W/O CONTRAST [CT] Stat 01/19/18 08:37 CHEST ONE VIEW [RAD] Stat Provisioning Analyst: Radiologist - EKG Interpretation EKG Interpretation (Text): 01/19/18 10:35 0759: sinus tachycardia at 109 bpm, nml qrs, nml axis, no acute sttw abn Interpreted by ED Physician: Yes - Medication Orders Current Medication Orders: Discontinued Medications Lorazepam (Ativan) 2 mg IM ONCE ONE; Protocol Stop: 01/19/18 08:51 Last Admin: 01/19/18 09:00 Dose: 2 mg IM Administration Charges Document 01/19/18 09:00 SZA (Rec: 01/19/18 09:00 SZA [id number]) Injection Site MAR Injection Site Right Deltoid Charges for Administration # of IM Administrations 1 Ziprasidone (Geodon Inj) 20 mg IM STAT STA; Protocol Stop: 01/19/18 08:54 Last Admin: 01/19/18 08:59 Dose: 20 mg IM Administration Charges Document 01/19/18 08:59 SZA (Rec: 01/19/18 08:59 SZA [id number]) Injection Site MAR Injection Site Left Deltoid Charges for Administration # of IM Administrations 1 - Scribe Statement The provider has reviewed the documentation as recorded by the Scribe Zuly Mancuso. All medical record entries made by the Scribe were at my direction and persona lly dictated by me. I have reviewed the chart and agree that the record accurately reflects my personal performance of the history, physical exam, medical decision making, and the department course for this patient. I have also personally directed, reviewed, and agree with the discharge instructions and disposition. Disposition/Present on Arrival - Present on Arrival Any Indicators Present on Arrival: No History of DVT/PE: No History of Uncontrolled Diabetes: No Urinary Catheter: No History of Decub. Ulcer: No History Surgical Site Infection Following: None - Disposition Have Diagnosis and Disposition been Completed?: Yes Diagnosis: Fall, Drug intoxication without complication Disposition: HOME/ ROUTINE Disposition Time: 12:36 Patient Plan: Discharge Condition: STABLE Additional Instructions: Return for any new or worsening symptoms. Follow up with your regular doctors as soon as possible. JW OSMAN, thank you for letting us take care of you today. Your provider was Dr. Cheng Martínez and you were treated for suspected drug intoxication. The emergency medical care you received today was directed at your acute symptoms. If you were prescribed any medication, please fill it and take as directed. It may take several days for your symptoms to resolve. Return to the Emergency Department if your symptoms worsen, do not improve, or if you have any other problems. Please contact your doctor or call one of the physicians/clinics you have been referred to that are listed on the Patient Visit Information form that is included in your discharge packet. Bring any paperwork you were given at discharge with you along with any medications you are taking to your follow up visit. Our treatment cannot replace ongoing medical care by a primary care provider outside of the emergency department. Thank you for allowing the [facility] team to be part of your care today. If you had an X-Ray or CT scan: A Radiologist will review the ED reading if any change in treatment is needed we will contact you. If you had a blood, urine, or wound culture: It will take several days for the results, if any change in treatment is needed we will contact you. If you had an STI test: It will take 48 hours for the results. Please call after 1 week if you have not heard back. Referrals: Steven Robledo DO [Primary Care Provider] - Follow up with primary Forms: [employer] ([place])
[2018-01-19] MEDS ORDERED: Sodium Chloride 0.9% 1,000 ML IV STA (09:34)
--- NOTE | 2018-01-19 10:15 | CT ---
Date of service: 01/19/2018 PROCEDURE: CT HEAD WITHOUT CONTRAST. HISTORY: trauma COMPARISON: None available. TECHNIQUE: Axial computed tomography images were obtained through the head/brain without intravenous contrast. Radiation dose: Total exam DLP = 1067.58 mGy-cm. This CT exam was performed using one or more of the following dose reduction techniques: Automated exposure control, adjustment of the mA and/or kV according to patient size, and/or use of iterative reconstruction technique. FINDINGS: HEMORRHAGE: No intracranial hemorrhage. BRAIN: No mass effect or edema. No atrophy or chronic microvascular ischemic changes. VENTRICLES: Unremarkable. No hydrocephalus. CALVARIUM: Unremarkable. PARANASAL SINUSES: Unremarkable as visualized. No significant inflammatory changes. MASTOID AIR CELLS: Unremarkable as visualized. No inflammatory changes. OTHER FINDINGS: None. IMPRESSION: Normal CT of the Head.
[2018-01-19 10:39] LABS: PH,URINE 6.5 (4.7-8.0); URINE BILIRUBIN NEGATIVE (NEGATIVE); URINE BLOOD NEGATIVE (NEGATIVE); URINE GLUCOSE (UA) NEGATIVE (NEGATIVE); URINE LEUKOCYTE ESTERASE NEGATIVE Leu/uL (NEGATIVE); URINE PROTEIN NEGATIVE mg/dL (<30 mg/dL); URINE UROBILINOGEN 0.2 E.U./dL (<1 E.U./dL)
[2018-01-19 10:40] LABS: URINE APPEARANCE CLEAR (CLEAR); URINE COLOR YELLOW (YELLOW)
--- NOTE | 2018-01-19 10:49 | CARD ---
APPROVED REPORT Date of service: 01/19/2018 EKG Measurement Heart [id number] IN 164P15 [id number] <Conclusion> Sinus tachycardia Otherwise normal ECG
[2018-01-19 10:53] LABS: BARBITURATES, UR NEGATIVE (NEGATIVE); BENZODIAZEPINES, UR POSITIVE (NEGATIVE); OPIATES, UR NEGATIVE (NEGATIVE); PHENCYCLIDINE, UR NEGATIVE (NEGATIVE)
--- NOTE | 2018-01-19 11:24 | RAD ---
Date of service: 01/19/2018 PROCEDURE: CHEST RADIOGRAPH, 1 VIEW HISTORY: medical screening COMPARISON: 09/22/2017 FINDINGS: LUNGS: Clear. PLEURA: No pneumothorax or pleural fluid seen. CARDIOVASCULAR: Normal. OSSEOUS STRUCTURES: No significant abnormalities. VISUALIZED UPPER ABDOMEN: Normal. OTHER FINDINGS: None. IMPRESSION: No active disease.
[2018-01-19 11:32] VITALS: RESP 18
[2018-01-19 12:33] VITALS: BP 119/74; PULSE 82; TEMP 98
== END 2018-01-19 13:07 | disposition home or self-care (01) ==
LOC: ED 07:51
DX: F19.129 Other psychoactive substance abuse with intoxication, unspecified (principal); W06.XXXA Fall from bed, initial encounter; Y92.003 Bedroom of unspecified non-institutional (private) residence as the place of occurrence of the external cause; I10 Essential (primary) hypertension; R56.9 Unspecified convulsions
CPT/HCPCS: 70450; 71045; 80053; 81003; 85025; 93005; 96372; 99285; G0480; J2060; J3486

== ENCOUNTER 2018-03-01 19:07 | Emergency (ER) | payer MEDICARE, MEDICAID ==
[2018-03-01 19:09] VITALS: BMI 26.3
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
[2018-03-01 20:00] LABS: BASO # 0.01 K/mm3 (0.0-2.0); BASO % 0.2 % (0.0-3.0); EOS % 0.3 % (1.5-5.0); GRAN # 4.1 (1.4-6.5); GRAN % 65.3 % (50.0-68.0); HEMOGLOBIN 12.5 g/dL (14.0-18.0); LYMPH # 1.8 (1.2-3.4); LYMPH % 28.1 % (22.0-35.0); MEAN CELL VOLUME 89.6 fl (80.0-105.0); MEAN CORPUSCULAR HEMOGLOBIN 29.6 pg (25.0-35.0); MEAN PLATELET VOLUME 9.7 fl (7.0-11.0); MONO # 0.4 (0.1-0.6); MONO % 6.1 % (1.0-6.0); RBC 4.23 10^6/uL (3.5-6.1); RED CELL DISTRIBUTION WIDTH 13.4 % (11.5-14.5); WHITE BLOOD COUNT 6.3 10^3/uL (4.5-11.0)
[2018-03-01 20:09] LABS: ACETAMINOPHEN < 10.0 ug/ml (10.0-20.0); SALICYLATE < 1 mg/dL (2.0-20.0)
[2018-03-01 20:10] LABS: ALB/GLOB RATIO 1.3 (1.1-1.8); ALBUMIN 4.4 g/dL (3.0-4.8); ALT/SGPT 35 U/L (7-56); AST/SGOT 131 U/L (17-59); BLOOD UREA NITROGEN 13 mg/dL (7-21); CALCIUM 9.5 mg/dL (8.4-10.5); GFR NON-AFRICAN AMERICAN > 60
[2018-03-01 21:16] LABS: BARBITURATES, UR NEGATIVE (NEGATIVE); BENZODIAZEPINES, UR POSITIVE (NEGATIVE); OPIATES, UR NEGATIVE (NEGATIVE); PHENCYCLIDINE, UR NEGATIVE (NEGATIVE); URINE BILIRUBIN NEGATIVE (NEGATIVE); URINE BLOOD LARGE (NEGATIVE); URINE GLUCOSE (UA) NEGATIVE (NEGATIVE); URINE LEUKOCYTE ESTERASE NEGATIVE Leu/uL (NEGATIVE); URINE PROTEIN 30 mg/dL (<30 mg/dL); URINE UROBILINOGEN 0.2 E.U./dL (<1 E.U./dL)
[2018-03-01 21:17] LABS: URINE APPEARANCE SLIGHT-CLOUDY (CLEAR); URINE COLOR YELLOW (YELLOW)
[2018-03-01 21:29] LABS: URINE BACTERIA NEG (NEG); URINE WBC NEGATIVE /hpf (0-6)
[2018-03-02 01:13] VITALS: BP 135/84; PULSE 93; RESP 18; TEMP 98.7; O2SAT 100
--- NOTE | 2018-03-02 09:06 | RAD ---
Date of service: 03/01/2018 HISTORY: pes eval COMPARISON: Comparison is made with 01/19/2018 FINDINGS: LUNGS: No active pulmonary disease. PLEURA: No significant pleural effusion identified, no pneumothorax apparent. CARDIOVASCULAR: No aortic atherosclerotic calcification present. Normal cardiac size. No pulmonary vascular congestion. OSSEOUS STRUCTURES: No significant abnormalities. VISUALIZED UPPER ABDOMEN: Normal. OTHER FINDINGS: None. IMPRESSION: No active disease.
--- NOTE | 2018-03-02 09:15 | CARD ---
APPROVED REPORT Date of service: 03/01/2018 EKG Measurement Heart [id number] [id number] <Conclusion> Sinus tachycardia Otherwise normal ECG
== END 2018-03-01 23:45 | disposition short-term general hospital (02) ==
LOC: ED 19:07
DX: F32.9 Major depressive disorder, single episode, unspecified (principal); F43.10 Post-traumatic stress disorder, unspecified; R45.851 Suicidal ideations; I10 Essential (primary) hypertension; Z91.14 Patient's other noncompliance with medication regimen
CPT/HCPCS: 71045; 80053; 81001; 85025; 90791; 93005; 96372; 99283; G0480; J2060